=== PATIENT | female | born 1980 | race Caucasian/White ===

== ENCOUNTER → 2016-12-19 | Outpatient (CLI) | payer BC ==
[~2016-12-19] MED LIST: LUVOX 50MG50 MG/TAB PO
== END ==
LOC: COL.RAD 14:44
DX: D48.1 Neoplasm of uncertain behavior of connective and other soft tissue (principal); Z33.1 Pregnant state, incidental

== ENCOUNTER → 2018-03-08 | Outpatient (CLI) | payer BC | LOC: LAC 13:25 | DX: Z39.1 Encounter for care and examination of lactating mother (principal); Z71.89 Other specified counseling ==

== ENCOUNTER → 2018-03-12 | Outpatient (CLI) | payer BC | LOC: LAC 10:27 | DX: Z39.1 Encounter for care and examination of lactating mother (principal); Z71.89 Other specified counseling ==